=== PATIENT | female | born 2000 | race African-American/Black ===

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

== ENCOUNTER 2021-12-11 15:41 | Outpatient (CLI) | payer MEDICARE, SELFPAY | END 2021-12-11 23:59 | disposition short-term general hospital (02) | LOC: IMMUN 12-13 15:42 | PROVIDERS: Visit Provider Family Medicine | DX: Z23 Encounter for immunization (principal) ==